=== PATIENT | female | born 1960 | race Caucasian/White ===

== ENCOUNTER → 2023-06-22 09:15 | Outpatient (REF) | payer BC, SELFPAY | LOC: RAD 09:15 | PROVIDERS: ATTENDING PHYSICIAN Obstetrics & Gynecology; FAMILY PHYSICIAN Family Medicine | DX: Z91.89 Other specified personal risk factors, not elsewhere classified (principal); E28.39 Other primary ovarian failure; Z13.820 Encounter for screening for osteoporosis | CPT/HCPCS: 77080 ==

== ENCOUNTER → 2023-10-18 10:50 | Outpatient (REF) | payer BC, SELFPAY | LOC: WDC 10:50 | PROVIDERS: ATTENDING PHYSICIAN Obstetrics & Gynecology; FAMILY PHYSICIAN Family Medicine | DX: R92.2 Inconclusive mammogram (principal); R92.30 Dense breasts, unspecified | CPT/HCPCS: 76641 ==

== ENCOUNTER → 2023-10-21 06:26 | Day surgery (SDC) | payer BC, SELFPAY | LOC: GI 06:26 | PROVIDERS: ATTENDING PHYSICIAN Internal Medicine Gastroenterology | DX: Z12.11 Encounter for screening for malignant neoplasm of colon (principal); K57.30 Diverticulosis of large intestine without perforation or abscess without bleeding; K64.0 First degree hemorrhoids; K63.89 Other specified diseases of intestine; D12.3 Benign neoplasm of transverse colon; D12.5 Benign neoplasm of sigmoid colon; K63.5 Polyp of colon; Z86.010 Personal history of colon polyps; Z98.890 Other specified postprocedural states | CPT/HCPCS: 45385; 88305 ==

== ENCOUNTER → 2024-05-23 15:53 | Outpatient (REF) | payer MEDICARE, SELFPAY | LOC: WDC 15:53 | PROVIDERS: ATTENDING PHYSICIAN Obstetrics & Gynecology; FAMILY PHYSICIAN Emergency Medicine | DX: Z12.31 Encounter for screening mammogram for malignant neoplasm of breast (principal) | CPT/HCPCS: 77063; 77067 ==

== ENCOUNTER → 2024-05-29 08:55 | Outpatient (REF) | payer MEDICARE, SELFPAY | LOC: WDC 08:55 | PROVIDERS: ATTENDING PHYSICIAN Obstetrics & Gynecology; FAMILY PHYSICIAN Emergency Medicine | DX: R92.8 Other abnormal and inconclusive findings on diagnostic imaging of breast (principal) | CPT/HCPCS: 76642 ==